=== PATIENT | male | born 1950 | race African-American/Black ===

== ENCOUNTER → 2019-05-26 | Outpatient (CLI) | payer MEDICARE ==
[2019-05-07 11:00] VITALS: BP 93/68
[~2019-05-26] MED LIST: AMLO10TA4 PO; DICY10CA53 PO; FINA5TAB4 PO; HYDR12.58 PO; SIMV40TA3 PO; TAMS0.4C97 PO
--- NOTE | 2019-05-26 15:17 | RAD ---
CLINICAL HISTORY: Lung mass, colon cancer INDICATION: Restaging. COMPARISON: CT chest 05/06/2019, CT abdomen and pelvis 05/07/2019. TECHNIQUE: Location of scan: [facility] Radiopharmaceutical Dose: 15.1 mCi F-18 FDG intravenous Blood glucose at time of study: 96 FDG uptake time = 60 minutes. Images were obtained from the mid head to the mid thighs. A low dose, noncontrast CT study was performed for the purpose of attenuation correction and anatomic localization. FINDINGS: Head and Neck: A hypermetabolic right supraclavicular lymph node has SUV max of 6.7. Chest: There is now a large right pleural effusion that causes near complete atelectasis of the right lung with minimal aeration of the right upper lobe. The right pleural effusion has an SUV max of 0.9. A nodular density is seen in the likely right upper lobe with an SUV max of 4.8. A right infrahilar nodular mass measures approximately 3.8 cm with an SUV max of 18.4. A 2 cm anterior mediastinal nodule has an SUV max of 4.9. A hypermetabolic subcarinal lymph node has SUV max of 3.8 measuring approximately 1.3 cm. Several right paracardiac nodules/lymph nodes are hypermetabolic, for example a right hypermetabolic nodule has an SUV max of 10.3 measuring approximately 1.7 x 1.3 cm. A hypermetabolic as ago esophageal recess lymph node has an SUV max of 10.7. Bandlike density in the medial left upper lobe has an SUV max of 1.5. Abdomen and Pelvis: A right adrenal nodule has an SUV max of 10.6. Physiologic activity is seen within the liver, renal collecting systems and bowel. No suspicious hypermetabolic abdominal and pelvic lymph nodes are seen. Other scarring calcifications of aorta Skeletal: No definite suspicious hypermetabolic focus in within the osseous structures. A few foci of low level FDG uptake likely degenerative. Reference SUV Values: Mediastinal SUV Max: 2.2 Liver SUV Max: 2.3 IMPRESSION: 1. Hypermetabolic right lung lesions with mediastinal and hilar lymphadenopathy are seen. These may represent changes of primary lung malignancy with metastases or metastasis of known prior colon cancer. 2. Right adrenal hypermetabolic nodule consistent with metastatic involvement. 3. Hypermetabolic right supraclavicular metastatic lymph node is also seen. Radiation Dosimetry: The radiopharmaceutical used for this exam delivers approximately 0.7 mSv/mCi (70 mRem/mCi) Source: ICRP Publication 106
== END | disposition home or self-care (01) ==
LOC: PETSC 11:51
PROVIDERS: ATTEND Internal Medicine Hematology & Oncology
DX: C34.31 Malignant neoplasm of lower lobe, right bronchus or lung (principal); C77.0 Secondary and unspecified malignant neoplasm of lymph nodes of head, face and neck; J90 Pleural effusion, not elsewhere classified; J98.11 Atelectasis; I70.0 Atherosclerosis of aorta; R91.1 Solitary pulmonary nodule; R59.0 Localized enlarged lymph nodes; E27.9 Disorder of adrenal gland, unspecified; Z85.038 Personal history of other malignant neoplasm of large intestine
CPT/HCPCS: 78815; A9552

== ENCOUNTER → 2019-06-15 | Outpatient (CLI) | payer MEDICARE ==
[2019-05-07 11:00] VITALS: BP 93/68
--- NOTE | 2019-06-15 10:23 | EKG ---
[facility] [address] [place] [address] Test Date: 2019-06-15 Test Time: 10:18:21 Pat Name: PENNIE ANTUNEZ Department: Room: Gender: M Hazmat Technician: SHASHANK : 1950 Requested By: SANDRINE MARTINO Order Number: [id number] Reading MD: Jimmie Cid MD Measurements Intervals [place] Rate: 108 P: 48 IL: 138 QRS: 90 QRSD: 86 T: 59 QT: 336 QTc: 454 Interpretive Statements SINUS TACHYCARDIA Electronically Signed On 06-16-2019 16:30:19 CDT by Jimmie Cid MD
--- NOTE | 2019-06-16 13:07 | CARD ---
MR#: [id number] Date of Study: 06/15/2019 Ordering Physician: SANDRINE VENEGAS, Referring Physician: SANDRINE VENEGAS, Tech: Alejandra Mcgowan RDCS APPROVED REPORT EXAM: LIMITED Two-dimensional echocardiogram Other Information Quality : Good INDICATION LV Function:Systolic Lung Cancer 2D DIMENSIONS RVDd2.9 (2.9-3.5cm)Left Atrium(2D)2.1 (1.6-4.0cm) IVSd1.1 (0.7-1.1cm)Aortic Root(2D)2.6 (2.0-3.7cm) LVDd2.9 (3.9-5.9cm)PWd0.6 (0.7-1.1cm) LVDs2.0 (2.5-4.0cm)FS (%) 31.0 % SV20.1 mlLVEF(%)60.3 (>50%) LEFT VENTRICLE The left ventricle is normal size. There is normal left ventricular wall thickness. The left ventricu lar systolic function is normal and the ejection fraction is within normal range. The Ejection Fracti on is 60-65%. There is normal LV segmental wall motion. Diastology not assessed. RIGHT VENTRICLE The right ventricle is normal size. The right ventricular systolic function is normal. ATRIA The left atrium size is normal. The right atrium is partially compressed by the lung mass/fluid (cathleen ent with known lung CA). Clinical correlation recommended. The interatrial septum is intact with no e vidence for an atrial septal defect or patent foramen ovale as noted on 2-D or Doppler imaging. AORTIC VALVE The aortic valve is mildly thickened but opens well. MITRAL VALVE The mitral valve is mildly thickened but opens well. There is no evidence of mitral valve prolapse. 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 PERICARDIAL EFFUSION There is no evidence of significant pericardial effusion. Critical Notification Critical Value: No <Conclusion> The left ventricular systolic function is normal and the ejection fraction is within normal range. Th e Ejection Fraction is 60-65%. There is normal LV segmental wall motion. The right atrium is partially compressed by the lung mass/fluid (patient with known lung CA). Clinica l correlation recommended. D/w Dr. Venegas Signed by : Jimmie Cid, Electronically Approved : 06/15/2019 12:08:11
== END | disposition home or self-care (01) ==
LOC: ECHO 09:39
PROVIDERS: ATTEND Internal Medicine Hematology & Oncology
DX: C34.31 Malignant neoplasm of lower lobe, right bronchus or lung (principal); R00.0 Tachycardia, unspecified
CPT/HCPCS: 93005; 93308

== ENCOUNTER 2019-07-07 12:54 | Outpatient (CLI) | payer MEDICARE ==
[~2019-07-07] VITALS: Ht 170.2 cm; Wt 65.8 kg
[~2019-07-07 12:54] MED LIST changes: -FERR325T14 PO; -FOLI1TAB PO
[2019-07-07 13:03] VITALS: BP 150/96
[2019-07-07 13:39] VITALS: BP 135/85
[2019-07-07 14:15] VITALS: BP 153/84
--- NOTE | 2019-07-07 14:52 | NUR ---
pt discharged to home. Pt told to follow up with primary care
--- NOTE | 2019-07-07 15:00 | RAD ---
Ultrasound-guided right-sided thoracentesis 07/07/2019 12:56 PM Indication: THORACENTESIS Procedure: Informed consent was obtained. A timeout procedure was performed. Sonographic evaluation of the right chest was performed demonstrating moderate pleural effusion. The right posterior chest was prepped and draped in sterile fashion. 1% lidocaine without epinephrine was administered for local anesthesia. Real-time ultrasonographic guidance was used in passing a 5 Luxembourgish Corduroeh catheter into the right pleural space. 2.0L of serosanguineous pleural fluid was removed. Samples of fluid were sent to the lab for further evaluation per ordering physician request. The catheter was removed and pressure held to achieve hemostasis. A sterile dressing was applied. No immediate complications were identified. The patient tolerated the procedure well. Impression: Right sided ultrasound-guided thoracentesis
--- NOTE | 2019-07-07 17:44 | RAD ---
CHEST AP ONLY Clinical Indication: Postthoracentesis on the right side Comparison: 07/07/2019 two-view chest x-ray exam. Findings: Upright portable frontal view of the chest was obtained. Aeration of the right upper lung is noted. Large residual right pleural effusion and atelectasis is suspected with significant opacification of the right lung including extending to the apex still noted. Minimal left pleural effusion. IMPRESSION: Decreased right pleural effusion. There is still significant opacification of the right hemithorax. No pneumothorax.. Electronically signed by: Paco Cruz MD (07/07/2019 5:41 PM) [facility]
== END 2019-07-07 14:54 | disposition home or self-care (01) ==
LOC: INTRAD 12:54
PROVIDERS: ATTEND Internal Medicine Hematology & Oncology
DX: C34.91 Malignant neoplasm of unspecified part of right bronchus or lung (principal)
CPT/HCPCS: 32555; 71045

== ENCOUNTER → 2019-07-07 | Outpatient (CLI) | payer MEDICARE ==
[2019-05-07 11:00] VITALS: BP 93/68
[~2019-07-07] MED LIST changes: +FERR325T14 PO; +FOLI1TAB PO; +SIMV40TA18 PO; -SIMV40TA3 PO
--- NOTE | 2019-07-07 11:58 | RAD ---
CHEST PA LATERAL History: Right lung adenocarcinoma, pleural effusion Comparison: 05/26/2019 PET/CT exam. Findings: Mediastinal shift to the right due to the very large right pleural effusion is noted. Opacification of the entire right hemithorax is noted with widening of the right rib interspaces. Pulmonary vasculature is normal. Left lung field is clear. Very small left pleural effusion suggested. There is no acute bone abnormality. IMPRESSION: Complete opacification of the right hemithorax is noted likely due to underlying pleural effusion which has increased in the interval. Very small left pleural effusion suggested. Electronically signed by: Paco Cruz MD (07/07/2019 11:55 AM) [facility]
== END | disposition home or self-care (01) ==
LOC: RAD 11:13
PROVIDERS: ATTEND Nurse Practitioner Adult Health
DX: C34.91 Malignant neoplasm of unspecified part of right bronchus or lung (principal)
CPT/HCPCS: 71046

== ENCOUNTER 2019-07-12 07:07 | Outpatient (CLI) | payer MEDICARE ==
[~2019-07-12] VITALS: Ht 170.2 cm; Wt 65.8 kg
[~2019-07-12 07:07] MED LIST changes: -SIMV40TA18 PO; +SIMV40TA3 PO
[2019-07-12 07:33] VITALS: BP 121/84
[2019-07-12 07:45] LABS: BASO % 1 % (0-3); EOS % 0 % (0-3); HEMATOCRIT 33.3 % (39.0-53.0); HEMOGLOBIN 10.8 g/dL (13.0-17.5); LYMPH # 2.7 x10^3/uL (1.0-4.8); LYMPH % 49 % (24-48); MEAN CORPUSCULAR HEMOGLOBIN 26 pg (25-35); MEAN CORPUSCULAR HGB CONC 32 g/dL (31-37); MEAN CORPUSCULAR VOLUME 81 fL (79-100); MONO # 0.3 x10^3/uL (0.0-1.1); MONO % 5 % (0-9); NEUT # 2.5 x10^3/uL (1.8-7.7); NEUT % 45 % (31-73); PLATELET COUNT 208 x10^3/uL (140-400); RED BLOOD COUNT 4.12 x10^6/uL (4.30-5.70); RED CELL DISTRIBUTION WIDTH 18.9 % (11.5-14.5); WHITE BLOOD COUNT 5.5 x10^3/uL (4.0-11.0)
[2019-07-12 07:56] LABS: PROTHROMBIN TIME PATIENT 13.8 SEC (11.7-14.0)
[2019-07-12 08:34] VITALS: BP 110/68
[2019-07-12 08:47] VITALS: BP 106/62
[2019-07-12 09:00] VITALS: BP 121/77
[2019-07-12 09:24] LABS: % LYMPHS 32 % (24-48); % MONOS 7 % (0-10); % SEGS 61 % (35-66)
[2019-07-12 09:27] LABS: PLT ESTIMATE ADEQUATE (ADEQUATE)
--- NOTE | 2019-07-12 10:54 | NUR ---
pt discharged to home per Dr. Bravo. Discharge instructions reviewed with pt
--- NOTE | 2019-07-12 14:35 | RAD ---
Ultrasound Guided Thoracentesis, right side Indication: 69-year-old with large right pleural effusion Sedation: Local anesthesia only Sterility: All elements of maximal sterile barrier technique including the use of a cap, mask, sterile gown, sterile gloves, large sterile sheet, appropriate hand hygiene, and 2% chlorhexidine for cutaneous antisepsis (or acceptable alternative antiseptic per current guidelines) were followed for this procedure. Technique and Findings: Following informed consent, the patient was prepped and draped in the usual sterile fashion. Ultrasound interrogation of the area of interest was performed revealing the presence of a pleural fluid collection. 1% Lidocaine was used to achieve local anesthesia over the area of interest. A small dermatotomy was made and a 5F Nle-u-arkgjaqx catheter was advanced under ultrasound guidance into the pleural space and 2500 cc's of thin yellow fluid was removed. The catheter was then removed and hemostasis was achieved with manual compression. Impression: US thoracentesis as described.
--- NOTE | 2019-07-12 17:11 | RAD ---
CHEST AP ONLY Clinical Indication: Postthoracentesis Comparison: 07/07/2019 AP view of the chest. Findings: Portable upright frontal view the chest was obtained. The cardiomediastinal silhouette is normal. Lungs are clear. There is no pneumothorax. Moderate to large pleural effusion with adjacent atelectatic consolidation is present. No acute bone abnormality. IMPRESSION: Notable decrease in right pleural effusion. Adjacent atelectatic consolidation again seen. Electronically signed by: Paco Cruz MD (07/12/2019 5:08 PM) [facility]
== END 2019-07-12 10:55 | disposition home or self-care (01) ==
LOC: INTRAD 07:07
PROVIDERS: ATTEND Internal Medicine Hematology & Oncology
DX: J90 Pleural effusion, not elsewhere classified (principal); Z79.01 Long term (current) use of anticoagulants
CPT/HCPCS: 32555; 36415; 71045; 85007; 85025; 85610; 85730

== ENCOUNTER 2019-07-20 09:51 | Outpatient (CLI) | payer MEDICARE ==
[~2019-07-20] VITALS: Ht 170.2 cm; Wt 67.6 kg
[2019-07-20] VITALS (10 sets, daily range): BP systolic 101–137; BP diastolic 70–90
--- NOTE | 2019-07-20 12:23 | RAD ---
CHEST AP ONLY 12:06 PM Clinical indications: Status post right-sided thoracentesis. COMPARISON: July 12, 2019. Findings: Moderate size right-sided pleural effusion is seen which is smaller in size as a result of the thoracentesis. There is improved aeration of the medial right lung base. No pneumothorax is seen. Right upper lobe perihilar lung mass is now seen measuring 4.5 cm. Left lung field is clear. Heart size and mediastinum are stable. IMPRESSION: Decrease in size of right-sided pleural effusion after thoracentesis. No pneumothorax is seen. 4.5 cm perihilar right upper lobe lung mass is now evident after the thoracentesis. Electronically signed by: Luis Fields MD (07/20/2019 12:20 PM) [id number]
--- NOTE | 2019-07-20 15:09 | RAD ---
Ultrasound-guided right-sided thoracentesis 07/20/2019 1:05 PM Indication: PLEURAL FLUID Procedure: Informed consent was obtained. A timeout procedure was performed. Sonographic evaluation of the right chest was performed demonstrating moderate pleural effusion. The right posterior chest was prepped and draped in sterile fashion. 1% lidocaine without epinephrine was administered for local anesthesia. Real-time ultrasonographic guidance was used in passing a 5 Polish invieh catheter into the right pleural space. 2.4 L of serosanguineous pleural fluid was removed. Samples of fluid were sent to the lab for further evaluation per ordering physician request. The catheter was removed and pressure held to achieve hemostasis. A sterile dressing was applied. No immediate complications were identified. The patient tolerated the procedure well. Impression: Right sided ultrasound-guided thoracentesis
== END 2019-07-20 12:54 | disposition home or self-care (01) ==
LOC: INTRAD 09:51
PROVIDERS: ATTEND Internal Medicine Hematology & Oncology
DX: J90 Pleural effusion, not elsewhere classified (principal)
CPT/HCPCS: 32555; 71045

== ENCOUNTER 2019-07-29 08:32 | Outpatient (CLI) | payer MEDICARE ==
[~2019-07-29] VITALS: Ht 170.2 cm; Wt 65.8 kg
[2019-07-29] MEDS ORDERED: FERR325T14 PO (08:46)
[2019-07-29] MEDS ORDERED: FOLI1TAB PO (08:46)
[2019-07-29 09:00] VITALS: BP 115/77
[2019-07-29 09:35] VITALS: BP 104/66
[2019-07-29 09:50] VITALS: BP 110/65
[2019-07-29 10:00] VITALS: BP 108/72
[2019-07-29 10:15] VITALS: BP 107/77
--- NOTE | 2019-07-29 10:21 | RAD ---
Ultrasound-guided right-sided thoracentesis 07/29/2019 8:17 AM Indication: RIGHT PLEURAL EFFUSION, LUNG CANCER Procedure: Informed consent was obtained. A timeout procedure was performed. Sonographic evaluation of the RIGHT chest was performed demonstrating moderate pleural effusion. The RIGHT posterior chest was prepped and draped in sterile fashion. 1% lidocaine without epinephrine was administered for local anesthesia. Real-time ultrasonographic guidance was used in passing a 5 Amharic infoBizzeh catheter into the RIGHT pleural space. 1.6 L of serosanguineous pleural fluid was removed. Samples of fluid were sent to the lab for further evaluation per ordering physician request. The catheter was removed and pressure held to achieve hemostasis. A sterile dressing was applied. No immediate complications were identified. The patient tolerated the procedure well. Impression: RIGHT sided ultrasound-guided thoracentesis
[2019-07-29 10:45] VITALS: BP 106/70
--- NOTE | 2019-07-29 13:19 | RAD ---
Single Views of the Chest 07/29/2019 12:55 PM Indication: thoracentesis repeat Comparison: Chest radiograph earlier today Findings: Redemonstration of a right-sided hydropneumothorax. The patient has taken a significantly deeper breath on the subsequent radiograph. When allowing for this, the previously demonstrated, likely ex vacuo right pneumothorax is grossly similar. Scarring/adhesions seen in the right lower lobe are similar in morphology. A right hilar mass is also similar. No mediastinal shift is seen. Left lung is clear. Heart size is normal. IMPRESSION allowing for differences in depth of inspiration, overall similar appearance of the right-sided hydropneumothorax following thoracentesis with morphology is consistent with an ex vacuo pneumothorax.
--- NOTE | 2019-07-29 13:21 | NUR ---
Discharge Note: PENNIE BECKWITH Discharge instructions and discharge home medications reviewed with Patient and a copy given. All questions have been answered and understanding verbalized. The following instructions and handouts were given: thoracentesis Discontinued lines and drains: no lines or drains to discontinue. Patient discharged to Home or Self Care with[facility]. Dr. Mathur came to bedside to check on patient and advised him to come back to the ER if he has any trouble with his breathing. Patient stated he understood and he follows up with Dr. Venegas on .
--- NOTE | 2019-07-29 16:48 | RAD ---
PORTABLE CHEST 1V 10:51 AM Clinical indications: Status post thoracentesis COMPARISON: July 20, 2019. Findings: The previously seen moderate size right-sided pleural effusion has been partially evacuated. It has been replaced with pneumothorax. Therefore, lung may be partially contracted and fibrotic unable to expand completely after removal of pleural fluid. There is a small right apical pneumothorax as well measuring 17 mm. Right upper lobe perihilar lung mass is again evident. The heart size, pulmonary vasculature, mediastinum and both brielle are unremarkable. Impression: Pneumothorax after thoracentesis on the right side. Electronically signed by: Luis Fields MD (07/29/2019 4:45 PM) [place] [id number]
== END 2019-07-29 13:15 | disposition home or self-care (01) ==
LOC: INTRAD 08:32
PROVIDERS: ATTEND Internal Medicine Hematology & Oncology
DX: J90 Pleural effusion, not elsewhere classified (principal); C34.91 Malignant neoplasm of unspecified part of right bronchus or lung
CPT/HCPCS: 32555; 71045

== ENCOUNTER → 2019-09-02 | Outpatient (CLI) | payer MEDICARE ==
[~2019-09-02] MED LIST changes: +FERR325T14 PO; +FOLI1TAB PO; +SIMV40TA18 PO; -SIMV40TA3 PO
--- NOTE | 2019-09-02 15:26 | RAD ---
EXAM: PET/CT SKULL BASE TO MID THIGH. HISTORY: Restaging lung cancer. COMPARISON: 05/26/2019. TECHNIQUE: CT was performed from the skull base through the mid thighs for the purposes of attenuation correction. 15.1 mCi F-18 fluorodeoxyglucose (FDG) was administered intravenously. After an uptake period, positron emission tomography was performed from the skull base through the mid thighs. The PET and CT data were fused and interpreted in combination a dedicated workstation. Blood glucose level was 105 mg/dL at the time of FDG administration. FINDINGS: A small focus of uptake along the right humeral greater tuberosity demonstrates maximum SUV 5.2. Another tiny focus is noted along the anterior cortex of the left proximal femur. A groundglass density region within the left upper lobe measures 2.6 x 1.7 cm with maximum SUV 1.7. This appears unchanged. A mass anteromedially in the right upper lobe measures 4.0 x 3.6 cm. This is new. Maximum SUV is 5.3. A right hilar mass has decreased in size. Maximum SUV is 8.3. Multifocal uptake along the right pleura has resolved. A moderate to large right pleural effusion has decreased. Activity within the right adrenal gland has resolved. Bilateral axillary lymph nodes are enlarged measuring up to 2.5 x 1.4 cm on the left. Maximum SUV is only 2.0. Additional CT findings include changes of cataract surgery. There are mucous retention cysts within the right maxillary sinus. Carotid atherosclerotic calcifications are noted. IMPRESSION: 1. A 4.0 cm pleural-based mass anteriorly in the right superior hemothorax appears new. Other pleural metastatic disease on the right has improved, however. A moderate right pleural effusion has decreased. 2. A right hilar mass has decreased. The right adrenal nodule is no longer detectable. 3. Small foci of uptake along the right humeral head and left proximal femur are not associated with lesions on CT. These may be inflammatory or small metastases. 4. Bilateral axillary adenopathy is not hypermetabolic. Correlate for CML or benign processes. 5. A groundglass density within the left upper lobe measures 2.6 cm, demonstrates low level uptake and is unchanged. Attention on further follow-up.
== END | disposition home or self-care (01) ==
LOC: PETSC 09:36
PROVIDERS: ATTEND Internal Medicine Hematology & Oncology
DX: C34.31 Malignant neoplasm of lower lobe, right bronchus or lung (principal); J90 Pleural effusion, not elsewhere classified; J34.1 Cyst and mucocele of nose and nasal sinus; I65.23 Occlusion and stenosis of bilateral carotid arteries; R59.0 Localized enlarged lymph nodes; R91.8 Other nonspecific abnormal finding of lung field
CPT/HCPCS: 78815; A9552

== ENCOUNTER → 2019-11-18 | Outpatient (CLI) | payer MEDICARE ==
--- NOTE | 2019-11-18 15:46 | RAD ---
EXAM: PET W CT SKULL TO MIDTHIGH EXAM DATE: 11/18/2019 INDICATION: 69-year-old male referred for lung cancer restaging. RADIOPHARMACEUTICAL: 14.77 mCi of F-18 Fluorodeoxyglucose (FDG) I.V. via the left antecubital fossa. TECHNIQUE: Patient weight: 150 pounds. Following at least four-hour fasting, the patient's blood glucose was 97 mg/dl. Approximately 1 hour after administration of FDG, overlapping emission scanning was performed from the orbital meatal line through the pelvis. A low-dose CT was performed for attenuation correction purposes and anatomic localization. Fused images of PET and CT were reviewed. Any standardized uptake values (SUV) reported are maximum values within a volume region of interest, expressed in gm/ml. COMPARISON: PET CT of 09/02/2019 FINDINGS: PET: In the head and neck, right-sided lower level 5 cervical lymph node between the right jugular vein and anterior scalene muscle shows slight interval decrease in size and FDG activity from a max SUV of 2.64 to 1.63 (fused axial image 144 of 174 on series 603, axial CT image 57 of 290 on series 3). A slightly more cephalad right levels 5 lymph node shows even less FDG activity which is decreased in size from prior. Previously evident hypermetabolic right level 2 axillary lymph node shows resolved FDG activity (previously 6.57). Physiologic activity in the salivary glands and oral cavity is identified with no abnormal uptake in the cervical lymph nodes or soft tissues except for asymmetric uptake in the left temporalis and longus colli muscles. In the chest, anterior right upper lobe pulmonary lung mass has slightly decreased in size to 3.6 cm and also shows slight interval decrease in FDG activity to a max SUV of 4.2 (compared with 5.3 as measured previously). The right hilar mass has further decreased in abnormal FDG activity to a max SUV of 7.2 (compared with 8.3 previously). In the abdomen and pelvis, no abnormal FDG uptake is identified. Skeletal system shows also a decrease in abnormal FDG activity with no residual activity appreciated in the right humerus CT: Head and neck: Carotid calcifications. Right maxillary antral mucous cyst. CHEST: Persistent groundglass opacity at the left lung apex measuring 2.4 x 0.8 cm. With interval decrease in size of the large right pleural effusion, the anterior right upper lobe lung mass is more distinct but shows marginal interval decrease in size from 4.0 x 3.6 cm reported previously down to 3.7 x 3.5 cm currently. Right hilar mass remains somewhat obscured by consolidative changes in the right lung but shows no definite increase in size. Bilateral axillary lymph node enlargement persists with the largest largest lymph node measuring 1.4 cm short axis in the left axilla. Multivessel dense coronary calcifications are present along with a moderate right pleural effusion that has decreased slightly in size in the interval. In the abdomen and pelvis, scattered atherosclerotic calcifications and scattered colonic diverticuli are noted. A right pelvic rib is present superficial to the inferior right pubic ramus. IMPRESSION: 1. Findings overall support a positive treatment response with decrease in size and activity of right lung masses and resolution of prior additional foci of abnormal FDG uptake. No new abnormal FDG uptake findings. There also has been a decrease in size of the right pleural effusion. 2. No significant change in left apical groundglass attenuation nodular density measuring 2.3 x 0.8 cm measurements. Continued attention on follow-up is recommended. Electronically signed by: Lopez Moran MD (11/18/2019 3:43 PM) [facility]
== END | disposition home or self-care (01) ==
LOC: PETSC 07:28
PROVIDERS: ATTEND Internal Medicine Hematology & Oncology
DX: C34.31 Malignant neoplasm of lower lobe, right bronchus or lung (principal); C34.91 Malignant neoplasm of unspecified part of right bronchus or lung; J90 Pleural effusion, not elsewhere classified; K57.30 Diverticulosis of large intestine without perforation or abscess without bleeding; I25.10 Atherosclerotic heart disease of native coronary artery without angina pectoris; R59.0 Localized enlarged lymph nodes; J34.1 Cyst and mucocele of nose and nasal sinus; I65.29 Occlusion and stenosis of unspecified carotid artery
CPT/HCPCS: 78815; A9552

== ENCOUNTER → 2019-12-27 | Outpatient (CLI) | payer MEDICARE ==
--- NOTE | 2019-12-27 09:53 | EKG ---
[facility] [address] [place] [address] Test Date: 2019-12-27 Test Time: 09:50:30 Pat Name: PENNIE BECKWITH Department: Room: Gender: M Exercise Instruct: LUCIANO : 1950 Requested By: SANDRINE MARTINO Order Number: [id number] Reading MD: Measurements Intervals [place] Rate: 81 P: 62 MN: 132 QRS: 43 QRSD: 72 T: 30 QT: 382 QTc: 449 Interpretive Statements SINUS RHYTHM QRS(T) CONTOUR ABNORMALITY CONSISTENT WITH ANTEROSEPTAL INFARCT AGE UNDETERMINED ABNORMAL ECG RI6.02 No previous ECG available for comparison
--- NOTE | 2019-12-27 14:19 | CARD ---
MR#: [id number] Date of Study: 12/27/2019 Ordering Physician: SANDRINE MARTINO, Referring Physician: SANDRINE MARTINO, Tech: Alejandra Mcgowan RDCS APPROVED REPORT EXAM: LIMITED Two-dimensional echocardiogram Other Information Quality : Good INDICATION Lung Cancer LEFT VENTRICLE The left ventricular systolic function is normal and the ejection fraction is within normal range. Th e Ejection Fraction is 55-60%. There is normal LV segmental wall motion. GREAT VESSELS The aortic root is normal in size. PERICARDIAL EFFUSION There is no evidence of significant pericardial effusion. Critical Notification Critical Value: No <Conclusion> The left ventricular systolic function is normal and the ejection fraction is within normal range. Th e Ejection Fraction is 55-60%. There is normal LV segmental wall motion. Global longitudinal strain at the lower limits of normal. Cannot rule out increase ascitic fluid versus pleural effusion on limited images. Recommend CXR or ab dominal imaging Signed by : Jimmie Cid, Electronically Approved : 12/27/2019 14:18:44
== END | disposition home or self-care (01) ==
LOC: ECHO 09:32
PROVIDERS: ATTEND Internal Medicine Hematology & Oncology
DX: C34.10 Malignant neoplasm of upper lobe, unspecified bronchus or lung (principal)
CPT/HCPCS: 93005; 93308

== ENCOUNTER → 2020-03-16 | Outpatient (CLI) | payer MEDICARE ==
--- NOTE | 2020-03-19 11:54 | RAD ---
EXAM: PET W CT SKULL TO MIDTHIGH EXAM DATE: 03/16/2020 INDICATION: Reason: LUNG CA / Spl. Instructions: / History: RADIOPHARMACEUTICAL: 14.6 mCi of F-18 Fluorodeoxyglucose (FDG) I.V. via the right antecubital fossa. TECHNIQUE: Patient weight: 160 pounds. Following at least four-hour fasting, the patient's blood glucose was 109 mg/dl. Approximately 1 hour after administration of FDG, overlapping emission scanning was performed from the orbital meatal line through the pelvis. A low-dose CT was performed for attenuation correction purposes and anatomic localization. Fused images of PET and CT were reviewed. Any standardized uptake values (SUV) reported are maximum values within a volume region of interest, expressed in gm/ml. COMPARISON: PET CTs of 11/18/2019 and 09/02/2019 FINDINGS: PET: Previously noted right level 5 cervical lymph node (image 146 of series 603 diffuse axial images) shows activity that is indistinguishable from background, with a max SUV of 2.18 this exam (compared with 1.63 on the immediate prior study and reportedly 2.64 on 1 09/02/2019). Otherwise, in the head and neck, no abnormal FDG uptake. In the chest, anterior right upper lobe lung mass shows FDG activity to max SUV of 4.34, essentially stable from previous max SUV of 4.2. Activity surrounding coarse calcifications in the partially collapsed right middle lobe near the hilum shows persistent abnormal FDG activity to a max SUV of 11.7 (compared with 7.2 on the immediate prior examination and 8.3 on the PET/CT even earlier on 09/02/2019). Left apical groundglass opacity shows FDG activity to a max SUV of 1.63 (compared with 1.39 on the immediate prior study). No new abnormal FDG uptake in the chest. In the abdomen and pelvis, no abnormal FDG uptake suspicious for malignancy is appreciated. There is symmetric increased uptake in the bilateral gluteus medius muscles, likely related to physical activity. No abnormal uptake in the osseous structures. CT: In the head and neck, there has been no significant interval change in the right level 5 cervical lymph node measuring 1.5 x 1.0 cm (image 48 of axial series 3). A developing cervical adenopathy or cervical mass. In the chest, there is persistent mild cortical thickening in the bilateral axillary lymph nodes. No developing mediastinal adenopathy. The groundglass opacity at the left lung apex persists with slightly greater soft tissue component when comparing axial image 73 of series 3 this exam with image 77 of series 3 on the prior study). It is overall unchanged in size and shape, measuring 2.4 x 0.8 cm. The patient's right pleural effusion has significantly increased in size in the interval, resulting in further atelectasis of the right lung. In the abdomen and pelvis, aortic calcification and tortuosity is redemonstrated along with scattered colonic diverticulosis. Solid abdominal organs show stable minimal bilateral perirenal soft tissue stranding. No hydronephrosis or calcified urinary tract stones identified. Urinary bladder shows incomplete distention and is otherwise unremarkable. No aggressive appearing osseous lesions. IMPRESSION: 1. Increase in FDG activity in the right middle lobe perihilar region (from 8.3 to 11.7) is equivocal for superimposed inflammation versus worsening metabolically active neoplastic disease. This is noted in the setting of an increasing right pleural effusion. 2. Slight interval increase in soft tissue component to left apical groundglass opacity, showing FDG uptake to max SUV of 1.63 (compared with 1.39 previously). 3. Otherwise stable to slightly decreased activity FDG in the head and neck and chest, with no abnormal activity in the abdomen or pelvis. Electronically signed by: Lopez Moran MD (03/19/2020 11:51 AM) [id number]
== END ==
LOC: PETSC 07:48
PROVIDERS: ATTEND Internal Medicine Hematology & Oncology
DX: C34.31 Malignant neoplasm of lower lobe, right bronchus or lung (principal); R91.8 Other nonspecific abnormal finding of lung field; J90 Pleural effusion, not elsewhere classified
CPT/HCPCS: 78815; A9552

== ENCOUNTER 2020-04-23 10:34 | Outpatient (CLI) | payer MEDICARE ==
[2020-04-23] VITALS (11 sets, daily range): BP systolic 121–156; BP diastolic 75–101
[~2020-04-23] VITALS: Ht 172.7 cm; Wt 70.3 kg
[2020-04-23 11:03] LABS: BASO % 1 % (0-3); EOS % 1 % (0-3); HEMATOCRIT 31.3 % (39.0-53.0); HEMOGLOBIN 10.3 g/dL (13.0-17.5); LYMPH # 0.6 x10^3/uL (1.0-4.8); LYMPH % 12 % (24-48); MEAN CORPUSCULAR HEMOGLOBIN 29 pg (25-35); MEAN CORPUSCULAR HGB CONC 33 g/dL (31-37); MEAN CORPUSCULAR VOLUME 89 fL (79-100); MONO # 0.5 x10^3/uL (0.0-1.1); MONO % 12 % (0-9); NEUT # 3.4 x10^3/uL (1.8-7.7); NEUT % 74 % (31-73); PLATELET COUNT 256 x10^3/uL (140-400); RED BLOOD COUNT 3.54 x10^6/uL (4.30-5.70); RED CELL DISTRIBUTION WIDTH 16.9 % (11.5-14.5); WHITE BLOOD COUNT 4.6 x10^3/uL (4.0-11.0)
[2020-04-23 11:15] LABS: PROTHROMBIN TIME PATIENT 13.2 SEC (11.7-14.0)
[2020-04-23] MEDS ORDERED: LIDOCAINE WITH 8.4% SOD BICARB 3 ML DISP.SYRIN. ONE (11:32)
[2020-04-23] MEDS ORDERED: LIDOCAINE WITH 8.4% SOD BICARB 3 ML DISP.SYRIN. INJ ONE (11:45)
--- NOTE | 2020-04-23 11:55 | NUR ---
drainage was a dark red-looking like old blood Addendum: 04/23/20 at 1156 by NISHA KIM RN Amended: Links added.
--- NOTE | 2020-04-23 14:00 | NUR ---
Discharge Note: PENNIE BECKWITH Discharge instructions and discharge home medications reviewed with Patient and a copy given. All questions have been answered and understanding verbalized. The following instructions and handouts were given: Thoracentesis. Discontinued lines and drains: No IV this visit. Patient discharged to home with alone; no sedation this visit.
--- NOTE | 2020-04-23 17:43 | RAD ---
PORTABLE CHEST 1V Clinical indications: Status post thoracentesis COMPARISON: Chest x-ray dated July 29, 2019. Findings: The previously seen right-sided pneumothorax has been replaced with pleural fluid. There is a moderate to large size pleural fluid collection present inferiorly and laterally. This may be due to inability to completely expand the right lower lung field due to fibrosis. Right hilar fullness is again evident. Left lung field remains clear. The heart size and mediastinum are unchanged. IMPRESSION: Previously seen right-sided pneumothorax within the inferior and lateral aspects of the right pleural space has been replaced with pleural fluid indicative of inability of the right lung field to completely expand. Right hilar fullness is again evident. Electronically signed by: Luis Fields MD (04/23/2020 5:40 PM) [id number]
--- NOTE | 2020-04-24 08:11 | RAD ---
Ultrasound-guided right-sided thoracentesis 04/24/2020 6:07 AM Indication: RIGHT PLERUAL EFFUSION Procedure: Informed consent was obtained. A timeout procedure was performed. Sonographic evaluation of the right chest was performed demonstrating moderate pleural effusion. The right posterior chest was prepped and draped in sterile fashion. 1% lidocaine without epinephrine was administered for local anesthesia. Real-time ultrasonographic guidance was used in passing a [employer] catheter into the right pleural space. 1.9 L of serosanguineous pleural fluid was removed. Samples of fluid were sent to the lab for further evaluation per ordering physician request. The catheter was removed and pressure held to achieve hemostasis. A sterile dressing was applied. No immediate complications were identified. The patient tolerated the procedure well. Impression: Right sided ultrasound-guided thoracentesis
== END 2020-04-23 14:00 | disposition home or self-care (01) ==
LOC: INTRAD 10:34
PROVIDERS: ATTEND Internal Medicine Hematology & Oncology
DX: J90 Pleural effusion, not elsewhere classified (principal)
CPT/HCPCS: 32555; 36415; 71045; 85025; 85610; C1892; J3490